=== PATIENT | male | born 1950 | race Caucasian/White ===

== ENCOUNTER 2016-11-29 08:50 | Emergency (ER) | payer OTHER ==
[~2016-11-29] VITALS: Ht 182.9 cm; Wt 85.0 kg
[2016-11-29 08:53] VITALS: BP 173/100; PULSE 88; RESP 17; TEMP 97.6; O2SAT 100
[2016-11-29] MEDS ORDERED: RANI150T PO (09:07)
[2016-11-29] MEDS ORDERED: METH500T3 PO (09:07)
[2016-11-29] MEDS ORDERED: LISI-519 PO (09:07)
[2016-11-29] MEDS ORDERED: ETOD400T PO (09:07)
[2016-11-29] MEDS ORDERED: ATOR10TA15 PO (09:07)
[2016-11-29] MEDS ORDERED: CYMB60CA PO (09:07)
[2016-11-29] MEDS ORDERED: traMADol HCL 50 MG TAB PO ONE (09:45)
--- NOTE | 2016-11-29 09:45 | PD ---
HPI Chief Complaint: Back/ Neck Pain or Injury Time Seen by Provider: 09:40 Travel History International Travel<30 days: No Contact w/Intl Traveler<30days: No Traveled to known affect area: No History of Present Illness HPI 66-year-old male with history of chronic neck and back pain, presents to the ER today for 3 days history of right lower back pain with radiation down the right leg, right leg cramping pains, he states it feels tight. He denies any injuries , chest pains, shortness of breath, or any other symptoms. Pain is currently a 7 out of 10, constant, and is worse with walking. Modifying Factors: None Associated Signs & Symptoms: Right lower back pain with radiation down right leg Risk Factors: Chronic back pain PFSH Past Medical History Arthritis: Yes (OSTEOARTHRITIS) Cardiovascular Problems: Yes (HTN) High Cholesterol: Yes GERD: Yes Hypertension: Yes Past Surgical History Tonsillectomy: Yes Other Surgery: Yes (PLASTIC SURGERY, FACE) Social History Alcohol Use: Yes (beer daily) Tobacco Use: No Substance Use: No Allergies-Medications (Allergen,Severity, Reaction): Coded Allergies: Acetaminophen (Verified Allergy, Intermediate, ITCHING, 11/29/16) Codeine (Verified Allergy, Intermediate, ITCHING, 11/29/16) Reported Meds & Prescriptions Reported Meds & Active Scripts Active Reported Atorvastatin (Atorvastatin Calcium) 10 Mg Tab Unknown Dose PO HS Lisinopril 5 Mg Tab 5 Mg PO DAILY Ranitidine (Ranitidine HCl) 150 Mg Tab 150 Mg PO BID Methocarbamol 500 Mg Tab 500 Mg PO BID Etodolac 400 Mg Tab 400 Mg PO BID Take with food. Cymbalta DR (Duloxetine HCl) 60 Mg Capdr 60 Mg PO DAILY Review of Systems Except as stated in HPI: all other systems reviewed are Neg Physical Exam Narrative GENERAL: Well-nourished, well-developed elderly white male patient in no acute distress, sitting in stretcher. Awake and oriented 3. SKIN: Warm and dry. HEAD: Normocephalic. EYES: No scleral icterus. No injection or drainage. NECK: Supple, trachea midline. CARDIOVASCULAR: Regular rate and rhythm without murmurs, gallops, or rubs. RESPIRATORY: Breath sounds equal bilaterally. No accessory muscle use. GASTROINTESTINAL: Abdomen soft, non-tender, nondistended. MUSCULOSKELETAL: No cyanosis, or edema. BACK: Mild tenderness to palpation of the right lower lumbar region, sciatic notch area, without obvious deformity. No CVA tenderness. EXTREMITIES: No clubbing, cyanosis, or edema. No joint tenderness, effusion, or edema noted. No calf tenderness. Data Data Last Documented VS Vital Signs Date Time Temp Pulse Resp B/P Pulse Ox O2 Delivery O2 Flow Rate FiO2 11/29/16 08:53 97.6 88 17 173/100 100 Orders Basic Metabolic Panel (Bmp) (11/29/16 09:40) Magnesium (Mg) (11/29/16 09:40) Us Leg Venous Doppler (11/29/16 09:40) Tramadol (Ultram) (11/29/16 09:45) Labs Laboratory Tests Test 11/29/16 09:45 Sodium Level 138 MEQ/L Potassium Level 3.7 MEQ/L Chloride Level 101 MEQ/L Carbon Dioxide Level 27.2 MEQ/L Anion Gap 10 MEQ/L Blood Urea Nitrogen 10 MG/DL Creatinine 1.10 MG/DL Estimat Glomerular Filtration 67 ML/MIN Rate Random Glucose 119 MG/DL Calcium Level 9.1 MG/DL Magnesium Level 2.4 MG/DL [facility] Medical Decision Making Medical Screen Exam Complete: Yes Emergency Medical Condition: Yes Medical Record Reviewed: Yes Interpretation(s) Laboratory Tests Test 11/29/16 09:45 Estimat Glomerular Filtration 67 ML/MIN (>89) Rate Random Glucose 119 MG/DL (74-106) Differential Diagnosis Right lower back pain radiating down the right leg, muscle crampinglumbar radiculopathy versus sciatica versus muscle spasms versus electrolyte abnormalities versus DVT Narrative Course Ultrasound shows no signs of DVT. There is no joint tenderness or any signs of obvious acute deformities. At this point, I suspect that he has sciatica. Lab work did not show any signs of significant left without abnormalities. My plan would be to release him with follow-[facility]. He was given tramadol in the ER with no significant side effects. Patient has stated to me that his primary care physician had given him Cymbalta and that made him very jittery. At this point, I have recommended that he stop Cymbalta since it is giving him at worse side effects. I will give him tramadol and have him use that as needed for pain. Return for any worsening in symptoms as needed. The plan has been discussed with him and he states understanding. Diagnosis Primary Impression: SCIATICA, RIGHT SIDE Med/Other Pt SpecificInfo: Prescription(s) given, Med Stopped (Cymbalta) Scripts Tramadol 50 Mg Tab50 Mg PO Q6H PRN (PAIN) #15 TAB Ref 0 Prov:Rodriguez Burgos MD 11/29/16 Disposition: 01 DISCHARGE HOME Condition: Stable Rodriguez Burgos MD Nov 29, 2016 09:45
[2016-11-29 10:10] LABS: POTASSIUM 3.7 MEQ/L (3.5-5.1)
[2016-11-29 10:13] LABS: BICARBONATE 27.2 MEQ/L (21.0-32.0); MAGNESIUM 2.4 MG/DL (1.5-2.5)
[2016-11-29] MEDS ORDERED: TRAM50TA PO (10:35)
--- NOTE | 2016-11-29 10:38 | RADHPO ---
EXAM DATE/TIME: 11/29/2016 10:22 [facility] COMPARISON: No previous studies available for comparison. INDICATIONS : Right leg pain. MEDICAL HISTORY : Hypertension. Gastroesophageal reflux disease. Hypercholesterolemia. Arthritis. SURGICAL HISTORY : Tonsillectomy. Bilateral knee surgery. Facial surgery. ENCOUNTER: Initial ACUITY: 3 days PAIN SCORE: 4/10 LOCATION: Right leg. TECHNIQUE: Venous ultrasound of the leg was performed from the inguinal ligament to the proximal calf. Real-rissa e, color Doppler and spectral tracing, compression and augmentation techniques were used. FINDINGS: There is normal compressibility of the deep venous system from the inguinal region to the proximal ca lf. No echogenic clot is seen in the lumen of the common femoral, femoral, popliteal, and posterior tibial veins. There is a normal response of the venous system to proximal and distal augmentation an d respiration. CONCLUSION: No DVT in the right leg. Toby Newman MD on November 29, 2016 at 10:36 Board Certified Radiologist. This report was verified electronically.
== END 2016-11-29 10:50 | disposition home or self-care (01) ==
LOC: PHEFT 08:50
DX: M54.31 Sciatica, right side (principal); M79.604 Pain in right leg; R25.2 Cramp and spasm; G89.29 Other chronic pain; M54.9 Dorsalgia, unspecified; E78.00 Pure hypercholesterolemia, unspecified; I10 Essential (primary) hypertension
CPT/HCPCS: 80048; 83735; 93971

== ENCOUNTER 2017-09-28 09:33 | Emergency (ER) | payer OTHER ==
[~2017-09-28] VITALS: Ht 182.9 cm; Wt 83.0 kg
[~2017-09-28 09:33] MED LIST: ATOR10TA15 PO; CYMB60CA PO; ETOD400T PO; LISI-519 PO; METH500T3 PO; RANI150T PO; TRAM50TA PO
[2017-09-28 09:51] VITALS: BP 172/85; PULSE 81; RESP 18; TEMP 98.6; O2SAT 100
[2017-09-28] MEDS ORDERED: SODIUM CHLORIDE 0.9% FLUSH 10 ML FLUSH IVF PRN (11:30)
[2017-09-28] MEDS ORDERED: METOPROLOL TARTRATE 50 MG TAB PO ONE (11:30)
[2017-09-28] MEDS ORDERED: LISINOPRIL 10 MG TAB PO ONE (11:30)
[2017-09-28 11:49] VITALS: O2SAT 100
[2017-09-28 11:53] LABS: BASOPHIL % 0.4 % (0.0-2.0); EOSINOPHIL # 0.1 TH/MM3 (0-0.4); EOSINOPHIL % 0.5 % (0.0-4.0); HEMATOCRIT 43.6 % (39.0-51.0); HEMO FLAGS DIFF FINAL; LYMPH % 21.3 % (9.0-44.0); LYMPHOCYTE # 2.2 TH/MM3 (1.0-4.8); MEAN CELL VOLUME 97.3 FL (80.0-100.0); MEAN CORPUSCULAR HEMOGLOBIN 33.1 PG (27.0-34.0); MONO % 9.9 % (0.0-8.0); NEUT % 67.9 % (16.0-70.0); PLATELET COUNT 218 TH/MM3 (150-450); RED BLOOD COUNT 4.48 MIL/MM3 (4.50-5.90); WHITE BLOOD COUNT 10.3 TH/MM3 (4.0-11.0)
--- NOTE | 2017-09-28 11:54 | PD ---
HPI Chief Complaint: Dizziness Time Seen by Provider: 10:30 Travel History International Travel<30 days: No Contact w/Intl Traveler<30days: No Traveled to known affect area: No History of Present Illness HPI 67-year-old male came to the emergency room with history of sudden onset of syncopal episode while he was working today. Patient works outdoors parking cars. He was working in between parking the car's when he got lightheaded and felt like he was going to pass out. He never had a full syncopal episode. No history of chest pain or headache. EMS was called. Patient has history of A. fib and he was noticed to be in A. fib by EMS on the monitor. Patient is supposed to take Lopressor which she has not been taking since he says when he first started taking it he started developing some chest discomfort and hence stopped it. He also drinks alcohol daily about 3-4 beers. Last night he drank 7 beers. Currently he says he feels okay. No history of shortness of breath. The atrial fibrillation was recently diagnosed for which his [facility] physician had ordered 1 g of Lopressor twice a day. He is not on any blood thinners. He just takes aspirin. No weakness of his arms or legs. No speech issue. PFSH Past Medical History Narrative Medical List of his past medical, surgical, social and family history is reviewed from the nursing note. Hx Anticoagulant Therapy: Yes (ASPIRIN) Arthritis: Yes (OSTEOARTHRITIS) Cardiovascular Problems: Yes (HTN) High Cholesterol: Yes Diminished Hearing: No GERD: Yes Hypertension: Yes Tetanus Vaccination: < 5 Years Influenza Vaccination: No ?: Not Past Surgical History Tonsillectomy: Yes Other Surgery: Yes (PLASTIC SURGERY, FACE) Social History Alcohol Use: Yes (beer daily) Tobacco Use: No Substance Use: No Allergies-Medications (Allergen,Severity, Reaction): Coded Allergies: acetaminophen (Unverified Allergy, Intermediate, ITCHING, 06/02/17) codeine (Unverified Allergy, Intermediate, ITCHING, 06/02/17) Comments List of his allergies reviewed from the nursing note. Reported Meds & Prescriptions Reported Meds & Active Scripts Active Eliquis (Apixaban) 5 Mg Tab 5 Mg PO BID Tramadol (Tramadol HCl) 50 Mg Tab 50 Mg PO Q6H PRN Reported Atorvastatin (Atorvastatin Calcium) 10 Mg Tab Unknown Dose PO HS Lisinopril 5 Mg Tab 5 Mg PO DAILY Ranitidine (Ranitidine HCl) 150 Mg Tab 150 Mg PO BID Methocarbamol 500 Mg Tab 500 Mg PO BID Etodolac 400 Mg Tab 400 Mg PO BID Take with food. Yonathan GRIMALDO (Duloxetine HCl) 60 Mg Capdr 60 Mg PO DAILY Narrative Medication list of his home medications reviewed from the nursing note. Review of Systems Except as stated in HPI: all other systems reviewed are Neg Neurologic: Positive: Dizziness Physical Exam Narrative GENERAL: Awake, alert, no obvious distress SKIN: Focused skin assessment warm/dry. HEAD: Atraumatic. Normocephalic. EYES: Pupils equal and round. No scleral icterus. No injection or drainage. ENT: No nasal bleeding or discharge. Mucous membranes pink and moist. NECK: Trachea midline. No JVD. CARDIOVASCULAR: Irregularly irregular rhythm. No murmur appreciated. RESPIRATORY: No accessory muscle use. Clear to auscultation. Breath sounds equal bilaterally. GASTROINTESTINAL: Abdomen soft, non-tender, nondistended. Hepatic and splenic margins not palpable. MUSCULOSKELETAL: No obvious deformities. No clubbing. No cyanosis. No edema. NEUROLOGICAL: Awake and alert. No obvious cranial nerve deficits. Motor grossly within normal limits. Normal speech. PSYCHIATRIC: Appropriate mood and affect; insight and judgment normal. Data Data Last Documented VS Vital Signs Date Time Temp Pulse Resp B/P (MAP) Pulse Ox O2 Delivery O2 Flow Rate FiO2 09/28/17 14:11 09/28/17 13:00 79 18 100 Room Air 09/28/17 09:51 98.6 Orders Orders Electrocardiogram (09/28/17 11:20) Basic Metabolic Panel (Bmp) (09/28/17 11:20) Ckmb (Isoenzyme) Profile (09/28/17 11:20) Complete Blood Count With Diff (09/28/17 11:20) Magnesium (Mg) (09/28/17 11:20) Prothrombin Time / Inr (Pt) (09/28/17 11:20) Troponin I (09/28/17 11:20) Chest, Single Ap (09/28/17 11:20) Ecg Monitoring (09/28/17 11:20) Bilateral Bp Monitoring (09/28/17 11:20) Iv Access Insert/Monitor (09/28/17 11:20) Oximetry (09/28/17 11:20) Oxygen Administration (09/28/17 11:20) Sodium Chloride 0.9% Flush (Ns Flush) (09/28/17 11:30) Metoprolol Tartrate (Lopressor) (09/28/17 11:30) Ct Brain W/O Iv Contrast(Rout) (09/28/17 ) Lisinopril (Prinivil) (09/28/17 11:30) CKMB (09/28/17 11:30) CKMB% (09/28/17 11:30) Apixaban (Eliquis) (09/28/17 13:15) Ed Discharge Order (09/28/17 13:21) Labs Laboratory Tests Test 09/28/17 11:30 White Blood Count 10.3 TH/MM3 Red Blood Count 4.48 MIL/MM3 Hemoglobin 14.8 GM/DL Hematocrit 43.6 % Mean Corpuscular Volume 97.3 FL Mean Corpuscular Hemoglobin 33.1 PG Mean Corpuscular Hemoglobin Concent 34.0 % Red Cell Distribution Width 13.0 % Platelet Count 218 TH/MM3 Mean Platelet Volume 10.4 FL Neutrophils (%) (Auto) 67.9 % Lymphocytes (%) (Auto) 21.3 % Monocytes (%) (Auto) 9.9 % Eosinophils (%) (Auto) 0.5 % Basophils (%) (Auto) 0.4 % Neutrophils # (Auto) 7.0 TH/MM3 Lymphocytes # (Auto) 2.2 TH/MM3 Monocytes # (Auto) 1.0 TH/MM3 Eosinophils # (Auto) 0.1 TH/MM3 Basophils # (Auto) 0.0 TH/MM3 CBC Comment DIFF FINAL Differential Comment Prothrombin Time 10.0 SEC Prothromb Time International Ratio 1.0 RATIO Blood Urea Nitrogen 12 MG/DL Creatinine 0.90 MG/DL Random Glucose 81 MG/DL Calcium Level 9.0 MG/DL Magnesium Level 2.2 MG/DL Sodium Level 139 MEQ/L Potassium Level 3.9 MEQ/L Chloride Level 106 MEQ/L Carbon Dioxide Level 27.4 MEQ/L Anion Gap 6 MEQ/L Estimat Glomerular Filtration Rate 84 ML/MIN Total Creatine Kinase 113 U/L Creatine Kinase MB 2.2 NG/ML Troponin I LESS THAN 0.02 NG/ML MDM Medical Decision Making Medical Screen Exam Complete: Yes Emergency Medical Condition: Yes Medical Record Reviewed: Yes Interpretation(s) Twelve-lead EKG was reviewed by me. Normal sinus rhythm, normal axis, nonspecific ST-T wave changes. Heart rate of 79 bpm. Differential Diagnosis Cardiac arrhythmia, intracranial bleed, electrolyte abnormalities medication noncompliance Narrative Course 11:53 AM patient has been getting frequent A. fib as noticed on the hotel maintenance technician while I was standing and talking to him. Also his blood pressure is elevated. Patient says that he did not take his morning medication including his lisinopril. I have ordered lisinopril as well as 50 mg of Lopressor for him. I've expressed to him the importance of being compliant with his medications and not drinking alcohol since this will worsen his A. fib. Also that he should be on an anticoagulant for his intermittent A. fib. Awaiting for blood test results and the CAT scan to be done and resulted. 1:17 PM blood test results of back and within acceptable limits. CT scan of the head shows an old lacunar infarct but no new abnormalities. I've given her one dose of felt was here and he will go home with a prescription. He also getting a 30 day coupon. Patient will be discharged. Procedures EKG Prior to Arrival: Yes Diagnosis Primary Impression: Paroxysmal atrial fibrillation Additional Impression: Near syncope Referrals: Primary Care Physician Additional Instructions: Please return to the ER if the condition worsens or any other new concerns. Take the medication as per the prescription direction. Please take your other prescription medications like is supposed to since it is dangerous with high blood pressure and A. fib. Drink alcohol in moderation. Med/Other Pt SpecificInfo: Prescription(s) given Scripts Apixaban (Eliquis) 5 Mg Tab 5 MG PO BID for Blood Clot Prevention, #60 TAB 0 Refills Prov: Matty Wu MD 09/28/17 Disposition: 01 DISCHARGE HOME Condition: Stable Matty Wu MD Sep 28, 2017 11:54
--- NOTE | 2017-09-28 12:06 | RADRPT ---
EXAM DATE/TIME: 09/28/2017 11:37 [facility] COMPARISON: No previous studies available for comparison. INDICATIONS : Dizziness since this morning. MEDICAL HISTORY : Hypercholesterolemia. Hypertension HTN. SURGICAL HISTORY : Unobtainable. ENCOUNTER: Initial ACUITY: 1 day PAIN SCORE: 0/10 LOCATION: Bilateral chest FINDINGS: A single view of the chest demonstrates the lungs to be symmetrically aerated without evidence of mas s, infiltrate or effusion. The cardiomediastinal contours are unremarkable. Osseous structures are intact. CONCLUSION: No acute disease. Dedrick Durand MD on September 28, 2017 at 12:04 Board Certified Radiologist. This report was verified electronically.
[2017-09-28 12:15] LABS: CREATINE KINASE 113 U/L (39-308)
[2017-09-28 12:18] LABS: ANION GAP 6 MEQ/L (5-15); BICARBONATE 27.4 MEQ/L (21.0-32.0); BLOOD UREA NITROGEN 12 MG/DL (7-18); CHLORIDE 106 MEQ/L (98-107); GLOMERULAR FILTRATION RATE 84 ML/MIN (>89); MAGNESIUM 2.2 MG/DL (1.5-2.5); POTASSIUM 3.9 MEQ/L (3.5-5.1); SODIUM (NA) 139 MEQ/L (136-145)
[2017-09-28 12:27] LABS: CKMB 2.2 NG/ML (0.5-3.6)
--- NOTE | 2017-09-28 12:28 | RADRPT ---
EXAM DATE/TIME: 09/28/2017 11:57 [facility] COMPARISON: No previous studies available for comparison. INDICATIONS : Syncopal episode today, denies stroke history. RADIATION DOSE: 56.36 CTDIvol (mGy) MEDICAL HISTORY : Hypertension. Atrial fibrilatino SURGICAL HISTORY : None. ENCOUNTER: Initial ACUITY: 1 day PAIN SCALE: 0/10 LOCATION: cranial TECHNIQUE: Multiple contiguous axial images were obtained of the head. Using automated exposure control and adjustment of the mA and/or kV according to patient size, radiation dose was kept as low as reasonably achievable to obtain optimal diagnostic quality images. DICOM format image data is av ailable electronically for review and comparison. FINDINGS: CEREBRUM: The ventricles are normal for age. No evidence of midline shift, mass lesion, hemorrha ge or acute infarction. No extra-axial fluid collections are seen. Old tiny lacunar infarct within t he left posterior parietal white matter. POSTERIOR FOSSA: The cerebellum and brainstem are intact. The 4th ventricle is midline. The cer ebellopontine angle is unremarkable. EXTRACRANIAL: The visualized portion of the orbits is intact. SKULL: The calvaria is intact. No evidence of skull fracture. CONCLUSION: 1. No acute infarct, acute hemorrhage, mass effect or extra axial fluid collections. 2. Old lacunar infarct within the left posterior parietal white matter. Rod Ny MD on September 28, 2017 at 12:23 Board Certified Radiologist. This report was verified electronically.
[2017-09-28 13:00] VITALS: BP 148/86; PULSE 79; RESP 18; O2SAT 100
[2017-09-28] MEDS ORDERED: APIXABAN 5 MG TABLET PO ONE (13:15)
[2017-09-28] MEDS ORDERED: APIX5TAB PO (13:21)
--- NOTE | 2017-09-28 17:45 | EKG ---
Date Performed: 09/28/2017 Time Performed: 09:59:21 PTAGE: 67 years EKG: Sinus rhythm SEPTAL MYOCARDIAL INFARCTION ABNORMAL ECG NO PREVIOUS TRACING DOCTOR: Shakir Garcia Interpretating Date/Time 09/28/2017 17:43:40
== END 2017-09-28 14:21 | disposition home or self-care (01) ==
LOC: NEPE 09:33
DX: I48.0 Paroxysmal atrial fibrillation (principal); R55 Syncope and collapse; M19.90 Unspecified osteoarthritis, unspecified site; I10 Essential (primary) hypertension; E78.00 Pure hypercholesterolemia, unspecified; R94.31 Abnormal electrocardiogram [ECG] [EKG]; Z79.01 Long term (current) use of anticoagulants
CPT/HCPCS: 70450; 71010; 80048; 82550; 82552; 83735; 84484; 85025; 85610; 93005; 99285